=== PATIENT | female | born 1950 | race Caucasian/White ===

== ENCOUNTER → 2020-03-28 | Outpatient (CLI) | payer MEDICARE ==
[~2020-03-28] MED LIST: ASPI-630 PO; CALC500T54 PO; MELA3TAB43 PO; MULT-245 PO; [UNRECOGNIZED DRUG - CODE] PO
== END | disposition home or self-care (01) ==
LOC: LAB 09:32
PROVIDERS: ATTEND Nurse Anesthetist, Certified Registered
DX: Z11.59 Encounter for screening for other viral diseases (principal)
CPT/HCPCS: U0003-CS

== ENCOUNTER → 2020-04-02 | Day surgery (SDC) | payer MEDICARE ==
[~2020-04-02] MED LIST changes: +IPRATRPIUM/ALBUTEROL 0.5/2.5MG 3 ML NEBU. NEB PRN; +IV RINGERS SOLUTION,LACTATED 1,000 ML IV SCH; +ONDANSETRON PF 4 MG/2 ML VIAL. IV PRN; +PROPOFOL 10,000 MCG/ML (20ML) VIAL IV ONE
[2020-04-02 09:00] VITALS: BP 122/74
--- NOTE | 2020-04-03 17:07 | PATHOLOGY ---
[facility] Accession Number: [id number] . 01 Material submitted: . PART A: cecum - CECAL POLYP PART B: colon - ASCENDING POLYP. Modifiers: ascending . 02 Diagnosis: A. Colon biopsies, cecal polyp: - Tubular adenomas. - Hyperplastic mucosal-associated lymphoid aggregates. B. Colon biopsy, ascending colon polyp: - Tubular adenoma. ([facility] 04/03/2020) [facility] 04/03/2020 1347 Local . 02 Comment: Sections of the cecal biopsy reveal two segments of tubular adenoma. Each of these segments contains a hyperplastic mucosal-associated lymphoid aggregate. Sections of the ascending colon biopsy also reveal a tubular adenoma. There is no high-grade dysplasia or evidence of malignancy. ([facility] 04/03/2020) . 02 Electronically signed: . Merritt Grande MD, Pathologist NPI- [id number] . 01 Gross description: . A. The specimen is received in formalin labeled "Hill, Praveena, cecal polyp" and consists of 2 fragments of vo tissue measuring 0.7 x 0.3 x 0.2 cm in aggregate which are entirely submitted in A1. . B. The specimen is received in formalin labeled "Hill, Praveena, ascending polyp" and consists of a fragment of vo tissue measuring 0.3 x 0.3 x 0.2 cm which is entirely submitted in B1. (RYAN; 04/02/2020) [facility] 04/02/2020 1718 Local . 02 Pathologist provided ICD-10: D12.0, D12.2 . 02 CPT . 774283, [id number] Specimen Comment: A courtesy copy of this report has been sent to [phone], [phone] Specimen Comment: [id number] Specimen Comment: Report sent to / DR WALKER Performed at: 01 [facility] [address], [place] [id number] MD Sean Soni MD Phone: [phone] Performed at: 02 [facility] [address], [place] [id number] MD Merritt Grande MD Phone: [phone]
== END ==
LOC: SURG 07:10
PROVIDERS: ATTEND Internal Medicine Gastroenterology
DX: Z12.11 Encounter for screening for malignant neoplasm of colon (principal); D12.2 Benign neoplasm of ascending colon; D12.0 Benign neoplasm of cecum; Z80.0 Family history of malignant neoplasm of digestive organs
CPT/HCPCS: 45380; 88305; J2704; J7120